=== PATIENT | female | born 1960 | race Caucasian/White ===

== ENCOUNTER 2018-10-15 20:03 | Emergency (ER) | payer OTHER ==
[~2018-10-15] VITALS: Ht 160 cm; Wt 83.9 kg
--- NOTE | 2018-10-15 20:21 | NUR ---
PT A/OX4, PRESENTS TO THE ER C/O R EYE TWITCH SINCE THIS AM. PT HAS A HX OF GOEL'S PALSY THE R EYE TWITCH HAD HER CONCERNED. PT DENIES PAIN, C/P, SOB, N/V/D, DIZZINESS, HEADACHE. VSS. ER MD AT BEDSIDE FOR MSE.
--- NOTE | 2018-10-15 20:34 | NUR ---
Patient discharged to home in stable conditon. Written and verbal after care instructions given. Patient verbalizes understanding of instructions. ALL BELONGINGS W/ PT. PT SELF-AMBULATED W/O DIFFICULTY. PT WILL BE DRIVEN HOME BY DAUGHTER IN PRIVATE VEHICLE.
[2018-10-15 20:35] VITALS: BP 112/60
== END 2018-10-15 20:36 | disposition home or self-care (01) ==
LOC: ER 20:03
DX: R25.3 Fasciculation (principal)
CPT/HCPCS: A4663